=== PATIENT | female | born 1970 | race Caucasian/White ===

== ENCOUNTER 2023-07-23 14:55 | Outpatient (OUT) | payer OTHER, BC, SELFPAY ==
--- NOTE | 2023-07-23 15:06 | CT_ITS ---
The [address] [address] Patient Name: ELIS GAYTAN MRN: [id number] date: 1970 Sex: F Assigned Patient Location: CT Current Patient Location: CT Accession/Order Number: [id number] Exam Date: 07/23/2023 15:08 Report Date: 07/23/2023 15:43 At the request of: NON-STAFF PHYSICIAN Procedure: CT sinus wo con CT sinus wo con, 07/23/2023 3:08 PM EDT, OH001 INDICATION: Sinus pressure J34.89 COMPARISON: None.. TECHNIQUE: CT examination of the paranasal sinuses is performed. Axial images were obtained with reconstructions in the sagittal and coronal planes. Dose reduction techniques were achieved by using automated exposure control and/or adjustment of mA and /or kV according to patient size and/or use of iterative reconstruction technique. FINDINGS: There is trace mucosal thickening in the left maxillary antrum. The ostiomeatal units are patent bilaterally. The ethmoid sinuses are clear. The frontal sinus is clear. The frontoethmoidal recesses are patent. The sphenoid sinus is clear. The sphenoethmoidal recesses are patent. There is no evidence of air-fluid level or destructive osseous process. There is deviation of the nasal septum to the right. There is mild nasal mucosal thickening. The visualized mastoid air cells are well aerated. The nasopharynx appears unremarkable. The orbital soft tissues are within normal limits. CT/CT sinus wo con IMPRESSION: Trace paranasal sinus disease. No fluid level or destructive osseous process is seen. Nasal septal deviation and mild nasal mucosal thickening. Electronically authenticated by: GLORIA SNELL Date: 07/23/2023 15:43
== END 2023-07-23 14:56 | disposition home or self-care (01) ==
LOC: CT 14:58
DX: J34.89 Other specified disorders of nose and nasal sinuses (principal); J34.2 Deviated nasal septum
CPT/HCPCS: 70486